=== PATIENT | female | born 1940 | race Caucasian/White ===

== ENCOUNTER 2019-05-06 08:38 | Outpatient (CLI) | payer OTHER, SELFPAY | END 2019-05-06 08:58 | PROVIDERS: Visit Provider Internal Medicine Cardiovascular Disease | DX: R07.89 Other chest pain (principal); I10 Essential (primary) hypertension; J44.9 Chronic obstructive pulmonary disease, unspecified; Z99.81 Dependence on supplemental oxygen | CPT/HCPCS: 99204; 93005; 93010 ==

== ENCOUNTER → 2019-06-28 14:00 | Outpatient (BNVA) | payer OTHER, SELFPAY | PROVIDERS: Visit Provider Internal Medicine Cardiovascular Disease | DX: R07.89 Other chest pain (principal); I10 Essential (primary) hypertension; J44.9 Chronic obstructive pulmonary disease, unspecified; Z99.81 Dependence on supplemental oxygen; Z87.891 Personal history of nicotine dependence | CPT/HCPCS: 99214; 99443 ==

== ENCOUNTER 2019-07-08 00:45 | Outpatient (CLI) | payer OTHER, SELFPAY ==
--- NOTE | 2019-07-08 06:45 | DI.NM_ITS ---
APPROVED REPORT Exam: Pharmacologic Patient Location: Out-Patient Room/Bed: Stress Nurse: Jennifer Jean Baptiste RN BMI: 23.77 Baseline Rhythm: Sinus Rhythm Comment: Frequent PAC's, Mild St elevation in V2, V3, V4, and V5 at baseline Indications: Patient reports intermittent midsteral ???sharp??? chest pain without radiation for the past 3 ??? 4 months. Patient states the chest pain may last from 1 hour to all day and is not associa lupe with activity. Medical History Medical History: Barretts Esophagus, Liver Disease. Patient is on home oxygen at 3L. Cardiac Medications: Amlodipine, Diltiazem, Hydrochlorothiazide, Isosorbide Mononitrate, Simvastatin. Allergies: No known drug allergies Cardiac Risk Factors: FHX of CAD, HTN, Hyperlipidemia, COPD Previous Cardiac Procedures: None Pretest Chest Pain Characteristics: None Exercise History: Sedentary Physical Disabilities: None Lung Sounds: Clear to auscultation Heart Sounds: Regular Stress Test Details Test: Pharmacologic stress testing performed using 0.4 mg of regadenoson per 5 mL given IV over 10 s econds. Reason for pharmacologic stress test: Severe COPD. Rest Isotope: Tc-99m Sestamibi. Dose: 10.6 Date: 07/08/2019 Injection Time: 0845 Stress Isotope: Tc-99m Sestamibi. Dose: 34 Date: 07/08/2019 Injection Time: 1022 HR Resting HR Supine: 77 bpm Max Heart Rate (APMHR): 142 bpm Target HR (85% APMHR): 120 bpm Max HR Achieved: 101 bpm % of APMHR: 71 BP Resting BP Supine: 168/86 mmHg Max BP: 171/70 mmHg ECG Resting ECG: Sinus Rhythm Ectopy: Frequent PAC's Comment: Mild St elevation in V2, V3, V4, and V5 at baseline--No significant ST segment changes from baseline post Lexiscan injection. Clinical Stress Symptoms: None Stress ECG Conclusion 1. This was a pharmacologic stress test. The resting electrocardiogram was normal 2. Blunted hemodynamics 3. Peak heart rate achieved was 101 which was 71% of maximal predicted heart rate for age. 4. Electrocardiographically the test was nondiagnostic due to inadequate heart rate 5. Frequent atrial premature beats were noted Stress Test Summary STAGE HR BP Symptoms NOTES Supine 77 168/86 1 min post Lexiscan injection 97 168/84 3 min post Lexiscan injection 98 171/80 6 min post Lexiscan injection 90 170/82 MPI Conclusion Normal myocardial perfusion without evidence of ischemia or prior infarction. Ejection fraction is 7 6% Radiologist Interpretation Radiologist agrees with [employer]'s Interpretation. Radiologist Interpretation by: Simran Mishra MD Interpretation Date/Time: 07/08/2019 14:14:19
--- NOTE | 2019-07-08 07:35 | DI.US_ITS ---
APPROVED REPORT EXAM: Comprehensive 2D, Doppler, and color-flow Echocardiogram Patient Location: Out-Patient Technician Support Engineer: Bethanie Mireles RDCS (AE) Indications: Chest pain Other Information Study Quality: Good Conclusion Normal left ventricular wall thickness and chamber size. Estimated ejection fraction is 60 to 65%. There are no segmental wall motion abnormalities There is no chamber enlargement Mild mitral annular calcification with trace mitral regurgitation The aortic valve is sclerotic. There is minimal aortic stenosis with a mean gradient of 8 mmHg. The re is no aortic regurgitation The tricuspid valve is structurally normal. There is mild tricuspid regurgitation. Estimated right ventricular systolic pressure is 45 mmHg Pulmonic valve is is structurally normal. There is trace pulmonic regurgitation Wall motion Left Ventricle The left ventricle is normal size. The left ventricular systolic function is normal. The left ventric ular ejection fraction is within the normal range. There is normal left ventricular wall thickness. T here is normal LV segmental wall motion. Transmitral Doppler flow pattern suggests impaired LV relaxa tion. There is no ventricular septal defect visualized. LVEF is 60-65%. Right Ventricle The right ventricle is normal size. The right ventricular systolic function is normal. The RVSP is 45 mmHg. Atria The left atrium size is normal. The right atrium size is normal. The interatrial septum is intact wit h no evidence for an atrial septal defect. Aortic Valve Aortic valve is sclerotic Mean gradient is 8 mmHg No aortic regurgitation is present. Mitral Valve There is mitral annular calcification. No evidence of mitral valve stenosis. Trace mitral regurgitati on. Tricuspid Valve The tricuspid valve is normal in structure. There is no tricuspid valve stenosis. Mild tricuspid regu rgitation. Estimated right ventricular systolic pressure is 45 mmHg Pulmonic Valve The pulmonary valve is normal in structure. There is no pulmonic valvular stenosis. Trace pulmonic re gurgitation. Great Vessels The aortic root is normal in size. The ascending aorta is mildly dilated. Aortic arch is not well vis ualized. IVC is normal in size and collapses >50% with inspiration. Pericardium There is no pericardial effusion. There is no pleural effusion. 2D Dimensions IVSD d PLAX 0.90 cm F: 0.6-1.0 LV Vol A2C d MOD 81.6 mL LVPW d PLAX 0.92 cm F: 0.6 - 1.0 LV Vol A4C d MOD 70.9 mL LVID d PLAX 4.21 cm F: 3.8 - 5.2 LA vol/ BSA A2C s A-L 25.6 mL/m2 LVDs 3.00 cm F: 2.2 - 3.5 LA vol/ BSA A4C s A-L 22.2 mL/m2 Ao Root d 2.93 cm F: 2.7 - 3.3 LA Vol/ BSA Biplane s A-L 24.9 mL/m2 RA Area A4C 14.19 cm2 LA Area A4C s MOD 15.09 cm2 RA Vol/ BSA A4C s A-L 24.1 mL/m2 LA Area A2C s MOD 15.47 cm2 Ao Asc Diam d 3.90 cm F: 2.3 - 3.1 LV EF A4C MOD 62.2 % LV EF Teichholz 54.5 % LV EF A2C MOD 60.6 % LVEF ([employer]) 60.29 % F: 54 - 74 LV EF Biplane MOD 60.3 % LV Volume 64.09 mL F: 46 - 106 LV Volume Index 40.30 mL/m2 F: 29 - 61 LV Vol Biplane MOD 78.7 mL FS 27.95 % M-Mode TAPSE 2.27 cm (M/F) >1.7 LV Diastology MV E' medial 0.059 (>0.07 m/s) E/A Ratio 0.9 LV E/e MED 13.05 (<14) MV E Vmax 0.77 (0.4-1.3 m/s) MV E' lateral 0.086 (>0.1 m/s) MV A Vmax 0.90 (0.4-1.3 m/s) LV E/e LAT 8.95 (<14) MV E/A Ratio 0.81 MV E/E' medial 13.10 MV E/E' lateral 8.98 Aortic Valve LVOT Area 2.83 cm2 AoV Area Vmax 2.14 cm2 LVOT Vmax 1.31 m/s AoV Area/ BSA (Vmax) 1.34 cm2/m2 LVOT Mean Gorge. 0.81 m/s ARTEMIO Mean Gorge. 1.82 cm2 LVOT Peak Grad 6.9 mmHg ARTEMIO Mean Gorge. Index 1.14 cm2/m2 LVOT Mean Grad 3.2 mmHg LVOT VTI 0.245 m LVOT Diam s 1.85 cm (M/F) 1.5-2.5 AoV Vmax 1.74 (0.5-1.3 m/s) Velocity Ratio 0.75 AoV Mean Gorge. 1.27 m/s AoV Peak Grad 12.0 mmHg LVOT SV 69.44 mL AoV Mean Grad 7.1 (<5 mmHg) AoV VTI 0.336 (0.18-0.25 m) AoV Area VTI 2.07 (2.5-4.5 cm2) AoV Area/ BSA (VTI) 1.30 cm/m2 Mitral Valve MV DT 244 (160-240 msec) MV PHT 71 msec MV Area PHT 3.10 cm2 Pulmonary Valve PV Vmax 1.13 (0.5-1.5 m/s) RVOT Peak Gr. 3.49 mmHg PV Peak Grad 5.1 mmHg RVOT Mean Gr. 1.55 mmHg PV Mean Grad 2.5 mmHg RVOT VTI 0.175 m PV VTI 0.208 m RVOT Vmax 0.93 m/s Tricuspid Valve TR Peak Grad 41.9 mmHg TR Vmax 3.24 m/s RA Pressure 3.00 mmHg RVSP (TR) 45.0 mmHg
[2019-07-08] MEDS: Regadenoson 0.4 MG/5 ML SYR IVP (10:35)
== END 2019-07-08 01:05 ==
PROVIDERS: PCP Neuromusculoskeletal Medicine & OMM; Visit Provider Internal Medicine Cardiovascular Disease
DX: R07.89 Other chest pain (principal); I35.0 Nonrheumatic aortic (valve) stenosis; I10 Essential (primary) hypertension; E78.5 Hyperlipidemia, unspecified; J44.9 Chronic obstructive pulmonary disease, unspecified; Z99.81 Dependence on supplemental oxygen
CPT/HCPCS: 78452; 93016; 93018; 93306; 93017; J2785

== ENCOUNTER → 2019-07-12 10:09 | Outpatient (BNVA) | payer OTHER, SELFPAY | PROVIDERS: PCP Neuromusculoskeletal Medicine & OMM; Visit Provider Internal Medicine Cardiovascular Disease | DX: R07.89 Other chest pain (principal); I10 Essential (primary) hypertension; J44.9 Chronic obstructive pulmonary disease, unspecified; Z99.81 Dependence on supplemental oxygen; Z87.891 Personal history of nicotine dependence | CPT/HCPCS: 99214; 99443 ==

== ENCOUNTER → 2019-08-05 09:06 | Outpatient (BNVA) | payer OTHER, SELFPAY | PROVIDERS: PCP Neuromusculoskeletal Medicine & OMM; Visit Provider Internal Medicine Cardiovascular Disease | DX: R07.89 Other chest pain (principal); I10 Essential (primary) hypertension; J44.9 Chronic obstructive pulmonary disease, unspecified; Z87.891 Personal history of nicotine dependence | CPT/HCPCS: 99213 ==

== ENCOUNTER → 2019-10-11 12:53 | Outpatient (BNVA) | payer OTHER, SELFPAY | PROVIDERS: PCP Neuromusculoskeletal Medicine & OMM; Referring Provider Neuromusculoskeletal Medicine & OMM; Visit Provider Internal Medicine Cardiovascular Disease | DX: R69 Illness, unspecified (principal) ==

== ENCOUNTER → 2019-10-25 14:41 | Outpatient (BNVA) | payer OTHER, SELFPAY | PROVIDERS: PCP Neuromusculoskeletal Medicine & OMM; Referring Provider Neuromusculoskeletal Medicine & OMM; Visit Provider Internal Medicine Cardiovascular Disease | DX: I10 Essential (primary) hypertension (principal); R07.89 Other chest pain | CPT/HCPCS: 99024 ==